=== PATIENT | male | born 1970 | race Hispanic/Latino ===

== ENCOUNTER 2019-06-17 10:35 | Day surgery (SDC) | payer BC ==
[2019-06-16 12:24] VITALS: BMI 35.0
[~2019-06-17 10:35] MED LIST: Bupivacaine 10 ML VIAL ONE; CEFAZOLIN 1 GM VIAL ONE; EPINEPHrine 0.3 MG, Dextrose 50% 3 ML in Ophthalmic Irrigation Solution 500 ML FS SCH; Fentanyl 100 MCG/2 ML VIAL ONE; Lidocaine 1% PF 5 ML VIAL ONE; Lidocaine 4% PF 5 ML AMP ONE; Maxitrol 0.1% Opth Oint 3.5 GM TUBE ONE; Midazolam HCl 2 mg/2 ml Vial ONE; PROPOFOL 200 MG/20 ML VIAL ONE; Triamcinolone 40 MG/ML VIAL ONE
[2019-06-17] MEDS ORDERED: Cyclopentolate 1% Opth Drop 2 ML BOT ONE (12:51)
[2019-06-17] MEDS ORDERED: Phenylephrine 2.5% Ophth Soln 5 ML BOT ONE (12:51)
--- NOTE | 2019-06-17 21:44 | OP ---
DATE OF PROCEDURE: 06/17/2019 PREOPERATIVE DIAGNOSIS: Tractional retinal detachment, left eye. POSTOPERATIVE DIAGNOSIS: Tractional retinal detachment, left eye. PROCEDURES PERFORMED: Pars plana vitrectomy, tractional retinal detachment repair of left eye. ANESTHESIA: Local with monitored anesthesia care. COMPLICATIONS: None. DESCRIPTION OF PROCEDURE: The patient was identified in the preoperative holding area. Appropriate informed consent for the planned surgical procedure on the left eye had been obtained. The patient was transported to the operative suite. Appropriate cardiopulmonary monitoring was established. Local anesthesia was obtained using retrobulbar block. The patient was prepped and draped in usual sterile manner for ophthalmic surgery of left eye. Lid speculum was placed in the left eye. A 25-gauge trocar was placed in conjunctiva and sclera superotemporally, inferotemporally, and supranasally. Infusion line was placed inferotemporally and light pipe vitreous cutter was inserted to the eye. Core vitrectomy was performed. The area of traction was noted on the nerve inferiorly causing a localized tractional retinal detachment. Fibrosis was carefully dissected away from the retina revealing a hole along the inferotemporal arcade. Subretinal fluid was drained. Panretinal photocoagulation was placed on nonmacular areas of the retina and 28% sulfur hexafluoride gas was infused into the eye. Trocars were removed. Eye was noted to retain pressure well. Retrobulbar Kenalog and subconjunctival Ancef were placed. Atropine antibiotic ointment was placed. The eye was patched and shielded. The patient was advised to position left side down. Followup in the morning with Dr. Patricia. Job ID: [id number]
== END 2019-06-17 16:08 | disposition home or self-care (01) ==
LOC: SDC 10:35
PROVIDERS: ATTEND Ophthalmology Retina Specialist
PROC: 08T53ZZ Resection of Left Vitreous, Percutaneous Approach (ICD-10-PCS; principal; 2019-06-17)
DX: H33.42 Traction detachment of retina, left eye (principal)
CPT/HCPCS: 67025; J0171; J0690; J2001; J2250; J2704; J3010; J3301; J3490